=== PATIENT | female | born 1950 | race Caucasian/White ===

== ENCOUNTER 2016-12-21 21:21 | Emergency (ER) | payer OTHER ==
[~2016-12-21] VITALS: Ht 162.6 cm; Wt 89.0 kg
[~2016-12-21 21:21] MED LIST: ASPIRIN81 M1 PO; HYDROCHLOROTHIA25 MG PO; NAPROSYN-EC500 MG PO; PREVACID30 MG PO; TRILIPIX135 MG PO; VICODIN,LORT1 TABLET PO
[2016-12-21] MEDS ORDERED: ZOFRAN4 MG PO (22:52)
[2016-12-21 23:20] VITALS: BP 148/65
== END 2016-12-21 23:21 | disposition home or self-care (01) ==
LOC: EME → EDBD 21:21 → EME 21:21
DX: S00.03XA Contusion of scalp, initial encounter (principal); M54.2 Cervicalgia; E78.5 Hyperlipidemia, unspecified; I10 Essential (primary) hypertension; W01.198A Fall on same level from slipping, tripping and stumbling with subsequent striking against other object, initial encounter; Y93.01 Activity, walking, marching and hiking
CPT/HCPCS: 70450; 72125; 99281; 99284